=== PATIENT | female | born 1990 | race African-American/Black ===

== ENCOUNTER 2017-08-24 17:10 | Emergency (ER) | payer SELFPAY ==
[~2017-08-24] VITALS: Ht 157.5 cm; Wt 81.8 kg
[~2017-08-24 17:10] MED LIST: ALBU8.5H3 IH
[2017-08-24] MEDS ORDERED: HYDROCODONE/ACETAMINOPHEN 5-325 MG TABLET PO ONE (18:15)
[2017-08-24] MEDS ORDERED: PENICILLIN V POTASSIUM 500 MG TABLET PO ONE (18:15)
[2017-08-24 18:38] VITALS: BP 129/76
== END 2017-08-24 18:48 | disposition home or self-care (01) ==
LOC: EMS 17:11
DX: K02.9 Dental caries, unspecified (principal); Z79.899 Other long term (current) drug therapy
CPT/HCPCS: 99283

== ENCOUNTER 2017-08-28 10:23 | Emergency (ER) | payer SELFPAY ==
[~2017-08-28] VITALS: Ht 157.5 cm; Wt 81.8 kg
[2017-08-28] MEDS ORDERED: INHALER IH (10:26)
[2017-08-28] MEDS ORDERED: DiphenhydrAMINE HCL 50 MG/ML VIAL IM ONE (11:45)
[2017-08-28] MEDS ORDERED: PredniSONE 20 MG TABLET PO ONE (11:45)
[2017-08-28 11:59] VITALS: BP 136/92
== END 2017-08-28 13:57 | disposition home or self-care (01) ==
LOC: EMS 10:25
DX: T63.441A Toxic effect of venom of bees, accidental (unintentional), initial encounter (principal); J45.909 Unspecified asthma, uncomplicated; F17.210 Nicotine dependence, cigarettes, uncomplicated; Y92.89 Other specified places as the place of occurrence of the external cause
CPT/HCPCS: 96372; 99283; J1200; J7512

== ENCOUNTER 2019-11-23 22:36 | Emergency (ER) | payer MEDICAID ==
[~2019-11-23] VITALS: Ht 157.5 cm; Wt 90.9 kg
[~2019-11-23 22:36] MED LIST changes: +INHALER IH
[2019-11-23] MEDS ORDERED: MUSCLE RELAXANT PO (22:41)
[2019-11-23] MEDS ORDERED: NAPR220T57 PO (22:41)
[2019-11-23] MEDS ORDERED: METHOCARBAMOL 750 MG TABLET PO ONE (23:30)
[2019-11-23] MEDS ORDERED: ACETAMINOPHEN 500 MG TABLET PO ONE (23:30)
[2019-11-23] MEDS ORDERED: IBUPROFEN 600 MG TABLET PO ONE (23:30)
[2019-11-24 01:34] VITALS: BP 130/80
== END 2019-11-24 01:45 | disposition home or self-care (01) ==
LOC: EMS 22:36
DX: S13.9XXA Sprain of joints and ligaments of unspecified parts of neck, initial encounter (principal); S16.1XXA Strain of muscle, fascia and tendon at neck level, initial encounter; J45.909 Unspecified asthma, uncomplicated; F17.210 Nicotine dependence, cigarettes, uncomplicated; X58.XXXA Exposure to other specified factors, initial encounter; Y93.89 Activity, other specified; Y92.89 Other specified places as the place of occurrence of the external cause; Y99.8 Other external cause status
CPT/HCPCS: 99406; Z7502; Z7610

== ENCOUNTER 2019-12-16 14:02 | Emergency (ER) | payer MEDICAID ==
[~2019-12-16] VITALS: Ht 157.5 cm; Wt 90.9 kg
[~2019-12-16 14:02] MED LIST changes: +MUSCLE RELAXANT PO; +NAPR220T57 PO
[2019-12-16 14:43] LABS: BASOPHILS % (AUTO) 0.7 % (0.0-2.0); EOSINOPHILS % (AUTO) 3.9 % (1.0-6.0); HEMATOCRIT 41.9 % (36-46); HEMOGLOBIN 14.1 g/dL (12.0-16.0); LYMPHOCYTES # (AUTO) 2.8 K/uL (1.0-4.8); LYMPHOCYTES % (AUTO) 34.7 % (22.0-44.0); MEAN CORPUSCULAR HEMOGLOBIN 29.7 pg (26.0-34.0); MEAN CORPUSCULAR HGB CONC 33.6 G/dL (31.0-37.0); MEAN CORPUSCULAR VOLUME 88 fL (80-100); MONOCYTES # (AUTO) 0.5 K/uL (0.1-1.0); MONOCYTES % (AUTO) 5.9 % (2.0-9.0); NEUTROPHILS # (AUTO) 4.4 K/uL (1.8-7.7); NEUTROPHILS % (AUTO) 54.8 % (40.0-70.0); PLATELET COUNT (AUTO) 240 K/uL (150-450); RED BLOOD CELL COUNT(AUTO) 4.74 MIL/uL (4.00-5.20); RED CELL DISTRIBUTION WIDTH 13.5 % (11.5-14.5)
[2019-12-16 14:48] LABS: APPEARANCE,URINE CLOUDY (CLEAR); BILIRUBIN,URINE NEGATIVE (NEGATIVE); GLUCOSE, URINE (UA) NEGATIVE (NEGATIVE); KETONES,URINE NEGATIVE (NEGATIVE); LEUKOCYTE ESTERASE ,URINE TRACE (NEGATIVE); NITRATE,URINE NEGATIVE (NEGATIVE); OCCULT BLOOD,URINE NEGATIVE (NEGATIVE); PROTEIN,URINE NEGATIVE (NEGATIVE)
[2019-12-16 14:51] VITALS: BP 120/74
[2019-12-16 14:56] LABS: ANION GAP 5 mmol/L (8-16); CALCIUM, TOTAL 9.6 mg/dL (8.8-10.5); CARBON DIOXIDE 29 mmol/L (22-29); CHLORIDE 104 mmol/L (98-107); CREATININE 1.06 mg/dL (0.60-1.30); GLOMERULAR FILTR. RATE CALC > 60 mL/min (>60); GLUCOSE,RANDOM 110 mg/dL (70-110); POTASSIUM 3.7 mmol/L (3.5-5.1); SODIUM SERUM 138 mmol/L (136-145); UREA NITROGEN, BLOOD 11 mg/dL (7-18)
[2019-12-16 15:07] LABS: ALANINE AMINOTRANSFERASE 22 U/L (12-78); ALBUMIN 3.5 g/dL (3.4-5.0); ALKALINE PHOSPHATASE 72 U/L (46-116); ASPARTATE AMINOTRANSFERASE 13 U/L (15-37); BILIRUBIN,TOTAL 0.5 mg/dL (0.1-1.0); HCG,QUANTITATIVE < 1 mIU/mL (0-6); TOTAL PROTEIN, SERUM 7.5 g/dL (6.4-8.2)
[2019-12-16 15:12] LABS: RBC,URINE 0-2 /HPF (0-2)
[2019-12-16 15:13] LABS: BACTERIA,URINE Rare /HPF (None Seen); SQUAMOUS EPITHELIAL CELL,UR Moderate /LPF (None Seen)
[2019-12-16] MEDS ORDERED: KETOROLAC TROMETHAMINE 30 MG/ML VIAL IM ONE (16:00)
== END 2019-12-16 16:50 | disposition home or self-care (01) ==
LOC: EMS 14:06
DX: R60.0 Localized edema (principal); M79.89 Other specified soft tissue disorders; J45.909 Unspecified asthma, uncomplicated; F17.210 Nicotine dependence, cigarettes, uncomplicated
CPT/HCPCS: 36415; 80053; 81001; 84702; 85025; 93970; 96372; 99284; J1885

== ENCOUNTER 2020-02-20 12:47 | Emergency (ER) | payer MEDICAID ==
[~2020-02-20] VITALS: Ht 165.1 cm; Wt 100.0 kg
[2020-02-20] MEDS ORDERED: DiphenhydrAMINE HCL 50 MG/ML VIAL IVP ONE (13:30)
[2020-02-20] MEDS ORDERED: SODIUM CHLORIDE 0.9% 1,000 ML IV ONE (13:30)
[2020-02-20] MEDS ORDERED: METOCLOPRAMIDE HCL 5 MG/ML 2 ML VIAL IVP ONE (13:30)
[2020-02-20] MEDS ORDERED: KETOROLAC TROMETHAMINE 30 MG/ML VIAL IVP ONE (13:30)
[2020-02-20 13:53] LABS: EOSINOPHILS % (AUTO) 4.6 % (1.0-6.0); HEMATOCRIT 42.7 % (36-46); HEMOGLOBIN 14.4 g/dL (12.0-16.0); LYMPHOCYTES # (AUTO) 2.9 K/uL (1.0-4.8); LYMPHOCYTES % (AUTO) 38.5 % (22.0-44.0); MEAN CORPUSCULAR HEMOGLOBIN 30.1 pg (26.0-34.0); MEAN CORPUSCULAR HGB CONC 33.8 G/dL (31.0-37.0); MEAN CORPUSCULAR VOLUME 89 fL (80-100); MONOCYTES # (AUTO) 0.5 K/uL (0.1-1.0); MONOCYTES % (AUTO) 6.2 % (2.0-9.0); NEUTROPHILS # (AUTO) 3.7 K/uL (1.8-7.7); NEUTROPHILS % (AUTO) 49.7 % (40.0-70.0); PLATELET COUNT (AUTO) 204 K/uL (150-450); RED BLOOD CELL COUNT(AUTO) 4.79 MIL/uL (4.00-5.20); RED CELL DISTRIBUTION WIDTH 13.5 % (11.5-14.5)
[2020-02-20 14:03] LABS: ANION GAP 10 mmol/L (8-16); CALCIUM, TOTAL 9.1 mg/dL (8.8-10.5); CARBON DIOXIDE 25 mmol/L (22-29); CHLORIDE 104 mmol/L (98-107); CREATININE 1.08 mg/dL (0.60-1.30); GLOMERULAR FILTR. RATE CALC > 60 mL/min (>60); GLUCOSE,RANDOM 109 mg/dL (70-110); POTASSIUM 3.6 mmol/L (3.5-5.1); SODIUM SERUM 139 mmol/L (136-145); UREA NITROGEN, BLOOD 10 mg/dL (7-18)
[2020-02-20 14:11] LABS: COVID AG,FIA SOURCE NASOPHARYNGEAL
[2020-02-20 14:18] LABS: ALANINE AMINOTRANSFERASE 24 U/L (12-78); ALBUMIN 3.3 g/dL (3.4-5.0); ALKALINE PHOSPHATASE 78 U/L (46-116); ASPARTATE AMINOTRANSFERASE 16 U/L (15-37); BILIRUBIN,TOTAL 0.3 mg/dL (0.1-1.0); HCG,QUANTITATIVE < 1 mIU/mL (0-6); TOTAL PROTEIN, SERUM 7.3 g/dL (6.4-8.2)
[2020-02-20 15:52] VITALS: BP 119/66
== END 2020-02-20 16:03 | disposition home or self-care (01) ==
LOC: EMS 12:53
DX: R51.9 Headache, unspecified (principal); R42 Dizziness and giddiness; H53.8 Other visual disturbances; Z20.828 Contact with and (suspected) exposure to other viral communicable diseases; F17.210 Nicotine dependence, cigarettes, uncomplicated; Z79.899 Other long term (current) drug therapy
CPT/HCPCS: 36415; 80053; 84702; 85025; 87426; 96361; 96374; 96375; 99284; J1200; J1885; J2765; J7030